=== PATIENT | female | born 1955 | race Caucasian/White ===

== ENCOUNTER 2019-06-11 12:25 | Day surgery (SDC) | payer MEDICARE, OTHER ==
[~2019-06-11] VITALS: Ht 162.6 cm; Wt 79.3 kg
[~2019-06-11 12:25] MED LIST: ALPR.5CR; AZIT250 PO; Aspir 8181 MG PO; COLE1 PO; FEXO60; Flonase 0.05% N16 GM; HYDCHL25; LISHYD1012 PO; METO100ER; MONT10T PO; NITR100CA PO; OXYACE5T PO; POTCHL10ER PO; Prilosec Otc20 MG; RESVERATROL250 MG PO; VARE1
[2019-06-11] MEDS ORDERED: TOLT4 (13:08)
[2019-06-11] MEDS ORDERED: BACL10 (13:09)
--- NOTE | 2019-06-11 15:29 | NUR ---
06/11/19 1529 Kathe Bhagat WHEN O2 PLUGGED IN PT. VERBALIZED MAKING HER NOSE FEEL BETTER.
--- NOTE | 2019-06-11 15:29 | NUR ---
06/11/19 1529 Kathe Bhagat PT. CAME IN WITH A STUFFED UP NOSE. PT. INSTRUCTED THE O2 COULD MAKE HER NOSE RUN OR MORE STUFFED UP.
== END 2019-06-11 15:43 | disposition home or self-care (01) ==
LOC: ORSCSDS 12:25
PROVIDERS: Internal Medicine Gastroenterology
PROC: 0DB68ZX Excision of Stomach, Via Natural or Artificial Opening Endoscopic, Diagnostic (ICD-10-PCS; principal; 2019-06-11 13:45)
PROC: 0DBK8ZX Excision of Ascending Colon, Via Natural or Artificial Opening Endoscopic, Diagnostic (ICD-10-PCS; principal; 2019-06-11 13:45)
PROC: 0DB58ZX Excision of Esophagus, Via Natural or Artificial Opening Endoscopic, Diagnostic (ICD-10-PCS; principal; 2019-06-11 13:45)
PROC: 0DBM8ZX Excision of Descending Colon, Via Natural or Artificial Opening Endoscopic, Diagnostic (ICD-10-PCS; principal; 2019-06-11 13:45)
DX: Z12.11 Encounter for screening for malignant neoplasm of colon (principal); Z86.010 Personal history of colon polyps; D12.2 Benign neoplasm of ascending colon; D12.4 Benign neoplasm of descending colon; K57.30 Diverticulosis of large intestine without perforation or abscess without bleeding; K22.70 Barrett's esophagus without dysplasia; K31.7 Polyp of stomach and duodenum; Z87.891 Personal history of nicotine dependence; Z79.899 Other long term (current) drug therapy
CPT/HCPCS: 88305; J2704; J7120

== ENCOUNTER → 2021-06-09 | Outpatient (CLI) | payer MEDICARE, OTHER ==
[~2021-06-09] MED LIST changes: +BACL10; +TOLT4
== END ==
LOC: LAB SHORT 19:05
DX: R30.0 Dysuria (principal); Z87.440 Personal history of urinary (tract) infections; Z88.0 Allergy status to penicillin
CPT/HCPCS: 87086